=== PATIENT | female | born 1965 | race African-American/Black ===

== ENCOUNTER 2017-08-08 21:34 | Inpatient (IN) | payer MEDICAID ==
[~2017-08-08] VITALS: Ht 172.7 cm; Wt 99.8 kg
[~2017-08-08 21:34] MED LIST: FERR-63 PO
[2017-08-09] MEDS ORDERED: MORPHINE SULFATE 4 MG/ML CPJ (NOT FOR IM USE) IV STA (01:19)
[2017-08-09] MEDS ORDERED: ONDANSETRON HCL 4MG/2ML VIAL IV STA (01:19)
[2017-08-09] MEDS ORDERED: SODIUM CHLORIDE 0.9% 1,000 ML IV ONE ×2 (01:19→03:17)
[2017-08-09 01:40] LABS: BASOPHILS % 0.6 % (0.0-2.0); EOSINOPHILS % 0.1 % (0.0-5.0); HEMATOCRIT. 34.7 % (36.0-48.0); HEMOGLOBIN. 11.6 g/dL (12.0-16.0); MEAN CORPUSCULAR HEMOGLOBIN 25.3 pg (28.0-32.0); MEAN PLATELET VOLUME 7.4 fl (7.4-10.4); MONOCYTES % 9.3 % (2.0-8.0); PLATELET 268 x1000/uL (130-400); RED BLOOD CELL COUNT 4.57 mill/uL (4.2-5.4); RED CELL DISTRIBUTION WIDTH 15.4 % (11.6-14.6)
[2017-08-09 01:44] LABS: CHLORIDE 102 mEq/L (98-107)
[2017-08-09 01:46] LABS: INR 1.2; PROTHROMBIN TIME 12.6 sec (9.4-11.6)
[2017-08-09 01:52] LABS: CARBON DIOXIDE 27 mEq/L (21-32)
[2017-08-09 02:31] LABS: CLARITY URINE CLEAR (CLEAR); COLOR URINE YELLOW (YELLOW); GLUCOSE URINE NEGATIVE (NEGATIVE); KETONES URINE 2+ (NEGATIVE); LEUKOCYTE ESTERASE URINE NEGATIVE (NEGATIVE); NITRITE URINE NEGATIVE (NEGATIVE); OCCULT BLOOD URINE TRACE (NEGATIVE); PH URINE 5.5 (4.5-8.0); PROTEIN URINE NEGATIVE (NEGATIVE); SPECIFIC GRAVITY URINE 1.021 (1.005-1.030)
[2017-08-09] MEDS ORDERED: IOHEXOL-300 100 ML BOTTLE ONE (03:13)
[2017-08-09] MEDS ORDERED: SODIUM CHLORIDE 0.9% 1,000 ML IV SCH (03:23)
[2017-08-09] MEDS ORDERED: CEFTRIAXONE 1 G PREMIX 50 ML IV ONE (03:30)
[2017-08-09] MEDS ORDERED: SKIN ADHESIVE 0.7 GM EA TOP ONE (07:19)
[2017-08-09] MEDS ORDERED: BUPIVACAINE HCL 0.5% (5MG/ML) 50ML ONE (07:19)
[2017-08-09 08:00] VITALS: BP 143/81
[2017-08-09] MEDS ORDERED: MIDAZOLAM HCL 5 MG/5 ML VIAL ONE (08:37)
[2017-08-09] MEDS ORDERED: FENTANYL CITRATE/PF 50MCG/ML 2ML VIAL ONE (08:38)
[2017-08-09] MEDS ORDERED: HYDROCODONE/ACETAMINOPHEN 5/325MG TABLET PO PRN ×2 (09:00)
[2017-08-09] MEDS ORDERED: MORPHINE SULFATE 2 MG/ML CPJ (NOT FOR IM USE) IV PRN (09:00)
[2017-08-09] MEDS ORDERED: ONDANSETRON HCL 4MG/2ML VIAL IV PRN ×3 (09:00→09:30)
[2017-08-09] MEDS ORDERED: ATROPINE SULFATE 1MG/10ML SYR IV PRN (09:30)
[2017-08-09] MEDS ORDERED: LABETALOL HCL 20MG/4ML CARPUJECT IV PRN (09:30)
[2017-08-09] MEDS ORDERED: FENTANYL CITRATE/PF 50MCG/ML 2ML VIAL IV PRN ×3 (09:30)
[2017-08-09 12:00] VITALS: BP 122/68
[2017-08-09 12:30] VITALS: BP 122/98
[2017-08-09] MEDS: DEXT 5%/0.45% NACL KCL 20MEQ/L 1,000 ML IV SCH ×2 (13:07→20:00)
[2017-08-09] MEDS: MORPHINE SULFATE 2 MG/ML CPJ (NOT FOR IM USE) IV PRN ×2 (13:10→21:27)
[2017-08-09 16:00] VITALS: BP 127/68
[2017-08-09 20:00] VITALS: BP 129/72
[2017-08-10] VITALS (7 sets, daily range): BP systolic 106–142; BP diastolic 55–72
[2017-08-10] MEDS: DEXT 5%/0.45% NACL KCL 20MEQ/L 1,000 ML IV SCH (06:04)
[2017-08-10] MEDS: MORPHINE SULFATE 2 MG/ML CPJ (NOT FOR IM USE) IV PRN (11:18)
[2017-08-10] MEDS ORDERED: ACETAMINOPHEN 650MG/20.3ML UDC PO PRN (12:30)
[2017-08-10] MEDS ORDERED: ACETAMINOPHEN 325MG TABLET PO NR (12:30)
== END 2017-08-10 16:58 | disposition home or self-care (01) | DRG 225 ==
LOC: ER 21:51 → 6EST 08-09 03:25 → EDBEDREQSVC 08-09 03:29 → EDBEDREQ 08-09 03:29 → EDBEDREQTM 08-09 03:29 → ENRESERV 08-09 04:09
PROVIDERS: ADMIT Internal Medicine; ATTEND Internal Medicine
PROC: 0DTJ4ZZ Resection of Appendix, Percutaneous Endoscopic Approach (ICD-10-PCS; principal; 2017-08-09 08:00)
DX: K35.89 Other acute appendicitis (principal); E87.1 Hypo-osmolality and hyponatremia; E66.9 Obesity, unspecified; E87.5 Hyperkalemia; Z90.710 Acquired absence of both cervix and uterus; Z79.899 Other long term (current) drug therapy; Z68.33 Body mass index [BMI] 33.0-33.9, adult
CPT/HCPCS: 36415; 73706; 74177; 80053; 81001; 81025; 83690; 85025; 85610; 88304; 96365; 96375; 99285; J0696; J2250; J2270; J2405; J3010; J3490; J7030; Q9967

== ENCOUNTER 2020-05-05 22:37 | Emergency (ER) | payer MEDICAID ==
[~2020-05-05] VITALS: Ht 172.7 cm; Wt 100.0 kg
[2020-05-05 23:09] VITALS: BP 143/74
[2020-05-06] MEDS ORDERED: ACETAMINOPHEN 500MG TABLET PO ONE (00:15)
== END 2020-05-06 02:15 | disposition home or self-care (01) ==
LOC: ER 22:37
DX: S46.812A Strain of other muscles, fascia and tendons at shoulder and upper arm level, left arm, initial encounter (principal); W18.39XA Other fall on same level, initial encounter; Y93.89 Activity, other specified; Y92.89 Other specified places as the place of occurrence of the external cause; Y99.8 Other external cause status; Z90.49 Acquired absence of other specified parts of digestive tract; Z90.710 Acquired absence of both cervix and uterus; M23.91 Unspecified internal derangement of right knee
CPT/HCPCS: 72040; 73030; 73562; 99284

== ENCOUNTER 2021-07-17 12:56 | Emergency (ER) | payer MEDICAID ==
[~2021-07-17] VITALS: Ht 172.7 cm; Wt 100.0 kg
[2021-07-17 14:30] VITALS: BP 141/83
[2021-07-17] MEDS ORDERED: IBUPROFEN 800MG TABLET PO ONE (15:00)
[2021-07-17] MEDS ORDERED: IBUP-2030 MT (15:44)
== END 2021-07-17 15:59 | disposition home or self-care (01) ==
LOC: ER 12:56
DX: M17.12 Unilateral primary osteoarthritis, left knee (principal)
CPT/HCPCS: 73560; 99283; L1830

== ENCOUNTER 2023-07-13 18:37 | Emergency (ER) | payer MEDICAID ==
[~2023-07-13] VITALS: Ht 172.7 cm; Wt 99.0 kg
[~2023-07-13 18:37] MED LIST changes: +IBUP-2030 MT
[2023-07-13 18:42] VITALS: BP 142/81; RESP 16; TEMP 98.6; O2SAT 100
[2023-07-13 18:43] VITALS: PULSE 78
[2023-07-13] MEDS ORDERED: IBUPROFEN 400MG TABLET PO ONE (20:00)
[2023-07-13] MEDS ORDERED: ACETAMINOPHEN 325MG TABLET PO ONE (20:00)
[2023-07-13] MEDS ORDERED: CYCL25PO15 MT (23:16)
== END 2023-07-13 23:56 | disposition home or self-care (01) ==
LOC: ER 18:37
DX: S13.4XXA Sprain of ligaments of cervical spine, initial encounter (principal); Z90.49 Acquired absence of other specified parts of digestive tract; Z90.710 Acquired absence of both cervix and uterus; V89.2XXA Person injured in unspecified motor-vehicle accident, traffic, initial encounter; Y93.89 Activity, other specified; Y92.89 Other specified places as the place of occurrence of the external cause; Y99.8 Other external cause status
CPT/HCPCS: 73130; 99283

== ENCOUNTER 2024-01-22 12:14 | Emergency (ER) | payer MEDICAID ==
[~2024-01-22] VITALS: Ht 172.7 cm; Wt 102.0 kg
[~2024-01-22 12:14] MED LIST changes: +CYCL25PO15 MT
[2024-01-22 13:22] VITALS: BP 139/72; TEMP 98; O2SAT 100
[2024-01-22] MEDS ORDERED: IBUP-2029 MT (14:30)
[2024-01-22 14:51] VITALS: PULSE 84; RESP 16
== END 2024-01-22 15:01 | disposition home or self-care (01) ==
LOC: ER 12:14
DX: S93.402A Sprain of unspecified ligament of left ankle, initial encounter (principal); Z90.49 Acquired absence of other specified parts of digestive tract; Z90.410 Acquired total absence of pancreas; W01.0XXA Fall on same level from slipping, tripping and stumbling without subsequent striking against object, initial encounter; Y93.89 Activity, other specified; Y92.89 Other specified places as the place of occurrence of the external cause; Y99.8 Other external cause status
CPT/HCPCS: 73610; 99283